=== PATIENT | female | born 2000 | race Caucasian/White ===

== ENCOUNTER 2024-09-27 02:23 | Day surgery (SDC) | payer OTHER ==
[2024-09-27] VITALS (222 sets, daily range): BP systolic 73–132; BP diastolic 36–86
[~2024-09-27] VITALS: Ht 170.2 cm; Wt 58.2 kg
[~2024-09-27 02:23] MED LIST: SODIUM CHLORIDE 0.9% 1,000 ML IV PRN
[2024-09-27] MEDS ORDERED: DEXMEDETOMIDINE HCL IN SODIUM 100 ML IV PRN (07:15)
[2024-09-27] MEDS ORDERED: FAMOTIDINE 20 MG/TAB PO PRN (07:30)
[2024-09-27] MEDS ORDERED: ALBUTEROL SULFATE 2.5 MG VIAL IN PRN (07:30)
[2024-09-27] MEDS ORDERED: cloNIDine HCL 0.1 MG/TAB PO PRN (07:30)
[2024-09-27] MEDS ORDERED: PANTOPRAZOLE SODIUM Sesquihydr 40 MG/TAB PO PRN (07:30)
[2024-09-27] MEDS ORDERED: diazePAM 5 MG/TAB PO PRN ×2 (07:30→08:30)
[2024-09-27] MEDS ORDERED: PHENYLEPHRINE HCL 10 MG in SODIUM CHLORIDE 0.9% 250 ML IV PRN (07:30)
[2024-09-27] MEDS ORDERED: SCOPOLAMINE 1.5 MG DIS TD PRN (07:30)
[2024-09-27] MEDS ORDERED: CYANOCOBALAMIN 500 MCG/TAB ( B12) PO PRN (07:30)
[2024-09-27] MEDS ORDERED: LACTATED RINGER'S 1,000 ML IV PRN ×2 (07:30→09:25)
[2024-09-27] MEDS ORDERED: ASCORBIC ACID 4,000 MG in SODIUM CHLORIDE 0.9% 1,000 ML IV SCH (08:00)
[2024-09-27 08:53] LABS: BASO% 0.3 % (0-3); HEMATOCRIT 35.4 % (37.0-47.0); HEMOGLOBIN 11.5 g/dl (12.0-16.0); IMMATURE GRANULOCYTES 0.2 % (0.0-5.0); LYMPH% 22.2 % (15-41); MEAN CELL VOLUME 91.9 fL CALC (80.0-100.0); MEAN CORPUSCULAR HGB 29.9 pG CALC (26.0-32.0); MEAN CORPUSCULAR HGB CONC 32.5 g/dL CAL (32.0-36.0); NEUT# 4.02 thou/uL (2.00-7.15); NEUT% 70.3 % (42-76); RED BLOOD COUNT 3.85 mill/uL (4.20-5.60); RED CELL DISTRI WIDTH 12.9 % (11.5-15.5)
[2024-09-27 09:06] LABS: ALBUMIN 4.3 g/dL (3.2-5.0); BILIRUBIN, TOTAL 0.9 mg/dL (0.02-1.3); CREATININE 0.7 mg/dL (0.5-1.0); POTASSIUM 3.7 mmol/l (3.5-5.1); TOTAL PROTEIN 7.1 g/dL (6.3-8.2)
[2024-09-27] MEDS ORDERED: MAGNESIUM SULFATE HEPTAHYDRATE 100 ML IV PRN (09:25)
[2024-09-27] MEDS ORDERED: DiphenhydrAMINE HCL 50 MG/ML SDV IV PRN (09:25)
[2024-09-27] MEDS ORDERED: NALTREXONE HCL 50 MG/TAB VT PRN (09:25)
[2024-09-27] MEDS ORDERED: OCTREOTIDE ACETATE 100 MCG/VIAL SDV SC PRN (09:25)
[2024-09-27] MEDS ORDERED: POTASSIUM CHLORIDE 20 MEQ/100 ML BAG IV PRN (09:25)
[2024-09-27] MEDS ORDERED: diazePAM 5 MG/TAB VT PRN (09:25)
[2024-09-27] MEDS ORDERED: LIDOCAINE HCL 1% (10MG/ML) 100 MG/10 ML MDV VT PRN ×2 (09:25)
[2024-09-27] MEDS ORDERED: cloNIDine HYDROCHLORIDE 100 MCG/ML 10 ML INJ IV PRN (09:25)
[2024-09-27] MEDS ORDERED: cloNIDine HCL 0.1 MG/TAB VT PRN (09:25)
[2024-09-27] MEDS ORDERED: STERILE WATER FOR IRRIGATION 1,000 ML BTL IR PRN (09:25)
[2024-09-27] MEDS ORDERED: SODIUM CHLORIDE 0.9% 1,000 ML IV PRN ×2 (09:25→19:00)
[2024-09-27] MEDS ORDERED: SUCCINYLCHOLINE CHLORIDE 20 MG/ML 10ML VIAL IV PRN (09:25)
[2024-09-27] MEDS ORDERED: ROCURONIUM BROMIDE 10 MG/ML 5 ML VIAL IV PRN (09:25)
[2024-09-27] MEDS ORDERED: PROPOFOL 100 ML IV PRN (09:25)
[2024-09-27] MEDS ORDERED: LIDOCAINE HCL 1% (10MG/ML) 100 MG/10 ML MDV IV PRN (09:25)
[2024-09-27] MEDS ORDERED: PROPOFOL 10 MG/ML 100ML VIAL IV PRN (09:25)
[2024-09-27] MEDS ORDERED: MIDAZOLAM HCL 2 MG/2 ML VIAL IV PRN ×3 (09:25→17:00)
[2024-09-27] MEDS ORDERED: ONDANSETRON HCl 4 MG/2 ML SDV IV PRN ×3 (09:25→19:00)
[2024-09-27] MEDS ORDERED: THIAMINE HCL 100 MG/ML 2ML VIAL IV PRN (09:25)
[2024-09-27] MEDS ORDERED: CLONIDINE0.1 MG PO (14:09)
[2024-09-27] MEDS ORDERED: NALTREXONE50 MG PO (14:09)
[2024-09-27] MEDS ORDERED: KLONOPIN2 MG PO (14:09)
[2024-09-27] MEDS ORDERED: KETOROLAC TROMETHAMINE 30 MG/ML SDV IV PRN (19:00)
[2024-09-27] MEDS ORDERED: ACETAMINOPHEN 1,000 MG/100 ML VIAL IV PRN (19:00)
[2024-09-27] MEDS ORDERED: PROMETHAZINE HCL 12.5 MG in SODIUM CHLORIDE 0.9% 50 ML IV PRN (19:00)
[2024-09-27] MEDS ORDERED: PROMETHAZINE HCL 25 MG in SODIUM CHLORIDE 0.9% 50 ML IV PRN (19:00)
[2024-09-27] MEDS ORDERED: ACETAMINOPHEN 500 MG TAB PO PRN (19:00)
[2024-09-27] MEDS ORDERED: HALOPERIDOL LACTATE 5 MG/ML SDV IV PRN (19:00)
[2024-09-27] MEDS ORDERED: PATIENT' OWN MED CONTROLLED 1 EA DOSE IV PRN (21:00)
[2024-09-27] MEDS ORDERED: cloNIDine HCL 0.1 MG/TAB PO SCH (23:00)
[2024-09-27] MEDS ORDERED: clonazePAM 1 MG/TAB PO PRN (23:00)
[2024-09-28 03:36] VITALS: BP 95/75
[2024-09-28] MEDS ORDERED: clonazePAM 1 MG/TAB PO PRN ×2 (04:00→08:00)
[2024-09-28] MEDS ORDERED: cloNIDine HCL 0.1 MG/TAB PO PRN (04:00)
[2024-09-28] MEDS ORDERED: NALTREXONE HCL 50 MG/TAB PO SCH (04:00)
[2024-09-28 05:58] LABS: BASO% 0.1 % (0-3); HEMATOCRIT 34.8 % (37.0-47.0); HEMOGLOBIN 11.4 g/dl (12.0-16.0); IMMATURE GRANULOCYTES 0.4 % (0.0-5.0); LYMPH% 11.1 % (15-41); MEAN CELL VOLUME 92.6 fL CALC (80.0-100.0); MEAN CORPUSCULAR HGB 30.3 pG CALC (26.0-32.0); MEAN CORPUSCULAR HGB CONC 32.8 g/dL CAL (32.0-36.0); MONO% 4.1 % (2-13); NEUT# 9.25 thou/uL (2.00-7.15); NEUT% 84.3 % (42-76); RED BLOOD COUNT 3.76 mill/uL (4.20-5.60)
[2024-09-28 06:04] LABS: ALBUMIN 3.5 g/dL (3.2-5.0); BILIRUBIN, TOTAL 0.9 mg/dL (0.02-1.3); CREATININE 0.7 mg/dL (0.5-1.0); MAGNESIUM 2.3 mg/dL (1.6-2.3); POTASSIUM 3.5 mmol/l (3.5-5.1); TOTAL PROTEIN 6.1 g/dL (6.3-8.2)
[2024-09-28 07:42] VITALS: BP 102/63
[2024-09-28] MEDS ORDERED: cloNIDine HCL 0.1 MG/TAB PO SCH (08:00)
[2024-09-28] MEDS ORDERED: ACETAMINOPHEN 325 MG/TAB PO SCH (08:00)
[2024-09-28] MEDS ORDERED: PANTOPRAZOLE SODIUM Sesquihydr 40 MG/TAB PO SCH (08:00)
[2024-09-28] MEDS ORDERED: Cholecalciferol 2,000 UNIT/TAB PO PRN (09:00)
[2024-09-28] MEDS ORDERED: ACETAMINOPHEN 500 MG TAB PO PRN (09:00)
[2024-09-28] MEDS ORDERED: MAGNESIUM OXIDE 400 MG/TAB PO PRN (09:00)
[2024-09-28] MEDS ORDERED: POTASSIUM CHLORIDE 20 MEQ/TAB PO SCH (09:00)
== END 2024-09-28 15:00 | disposition home or self-care (01) | DRG 897 ==
LOC: ANR 02:23 → MS2 02:24 → ANR 08:00 → MS2 08:49 → ANR 09-28 15:00
PROVIDERS: ATTEND Anesthesiology
DX: F11.20 Opioid dependence, uncomplicated (principal)
CPT/HCPCS: J1100; J1200; J2354; J2405; J2550; J2704; J3411; J3475; J3480; J3490